=== PATIENT | female | born 2000 | race Caucasian/White ===

== ENCOUNTER 2019-05-06 23:37 | Emergency (ER) | payer OTHER ==
[2019-05-07 00:29] LABS: ABSOLUTE BASOPHILS # (AUTO) 0.1 10^3/uL (0.0-0.2); ABSOLUTE EOSINOPHILS # (AUTO) 0.2 10^3/uL (0.0-0.6); ABSOLUTE LYMPHOCYTES (AUTO) 3.6 10^3/uL (0.5-4.7); ABSOLUTE MONOCYTES (AUTO) 0.7 10^3/uL (0.1-1.4); ABSOLUTE NEUT (AUTO) 6.4 10^3/uL (1.7-8.2); BASOPHILS % (AUTO) 0.8 % (0-2); EOSINOPHILS % (AUTO) 1.5 % (0-6); HEMATOCRIT 43.9 % (36.0-47.0); HEMOGLOBIN 15.1 g/dL (12.0-15.5); LYMPHOCYTES % (AUTO) 32.5 % (13-45); MEAN CORPUSCULAR HEMOGLOBIN 30.4 pg (27.0-33.4); MEAN CORPUSCULAR HGB CONC 34.4 g/dL (32.0-36.0); MEAN CORPUSCULAR VOLUME 88 fl (80-97); MONOCYTES % (AUTO) 6.5 % (3-13); PLATELET COUNT 344 10^3/uL (150-450); RED BLOOD COUNT 4.97 10^6/uL (3.72-5.28); RED CELL DISTRIBUTION WIDTH 12.5 % (11.5-14.0); SEGMENTED NEUTROPHILS % (AUTO) 58.7 % (42-78); TOTAL CELLS COUNTED % (AUTO) 100 %
[2019-05-07 00:39] LABS: APPEARANCE,URINE SLIGHTLY-CLOUDY; BILIRUBIN,URINE NEGATIVE (NEGATIVE); COLOR,URINE YELLOW; GLUCOSE, URINE NEGATIVE (NEGATIVE); KETONES,URINE TRACE mg/dL (NEGATIVE); LEUKOCYTE ESTERASE,URINE NEGATIVE (NEGATIVE); NITRITE,URINE NEGATIVE (NEGATIVE); PROTEIN,URINE 30 mg/dL (NEGATIVE); URINE SPECIFIC GRAVITY 1.027; UROBILINOGEN,URINE NEGATIVE mg/dL (<2.0)
[2019-05-07 00:47] LABS: ALANINE AMINOTRANSFERASE 21 U/L (9-52); ALBUMIN 4.2 g/dL (3.5-5.0); ALKALINE PHOSPHATASE 55 U/L (38-126); ANION GAP 10 (5-19); ASPARTATE AMINO TRANSFERASE 22 U/L (14-36); BILIRUBIN,DIRECT 0.3 mg/dL (0.0-0.4); BILIRUBIN,TOTAL 0.4 mg/dL (0.2-1.3); BLOOD UREA NITROGEN 15 mg/dL (7-20); CALCIUM 9.5 mg/dL (8.4-10.2); CARBON DIOXIDE 26 mmol/L (22-30); CHLORIDE 104 mmol/L (98-107); GLUCOSE 86 mg/dL (75-110); LIPASE 47.7 U/L (23-300); SODIUM 139.7 mmol/L (137-145); TOTAL PROTEIN 6.5 g/dL (6.3-8.2)
[2019-05-07] MEDS ORDERED: ONDANSETRON 4 MG TAB.RAPDIS PO ONE (02:33)
[2019-05-07] MEDS ORDERED: OXYCODONE-ACETAMINOPHEN 5-325 MG TABLET PO ONE (02:33)
--- NOTE | 2019-05-07 02:35 | ER Document Report ---
ED GI/ - General Chief Complaint: Abdominal Pain Stated Complaint: ABDOMINAL PAIN Time Seen by Provider: 05/07/19 01:49 Notes: Patient is a 19-year-old female that comes to the emergency department for chief complaint of abdominal/pelvic pain. She reports nausea. Symptoms started tonight at 10 PM during and after intercourse. Patient is also currently on her menstrual cycle. She denies abdominal discharge, dysuria, fever/chills, flank pain, vomiting. Patient has Mirena IUD, denies any abdominal surgeries or any surgeries whatsoever, denies any medical history otherwise. TRAVEL OUTSIDE OF THE [place] IN LAST 30 DAYS: No - Related Data Allergies/Adverse Reactions: amoxicillin Allergy (Verified 05/07/19 00:23) Past Medical History - General Information source: Patient - Social History Smoking Status: Never Smoker Frequency of alcohol use: Social Drug Abuse: Marijuana Lives with: Family Family History: Reviewed & Not Pertinent Patient has suicidal ideation: No Patient has homicidal ideation: No - Medical History Medical History: Negative Renal/ Medical History: Denies: Hx Peritoneal Dialysis - Immunizations Immunizations up to date: Yes Hx Diphtheria, Pertussis, Tetanus Vaccination: Yes Review of Systems - Review of Systems Constitutional: No symptoms reported EENT: No symptoms reported Cardiovascular: No symptoms reported Respiratory: No symptoms reported Gastrointestinal: See HPI Genitourinary: See HPI Female Genitourinary: See HPI Musculoskeletal: No symptoms reported Skin: No symptoms reported Hematologic/Lymphatic: No symptoms reported Neurological/Psychological: No symptoms reported Physical Exam - Vital signs Vitals: Temp Pulse Resp BP Pulse Ox 97.3 F 91 20 111/69 98 05/06/19 23:54 05/06/19 23:54 05/06/19 23:54 05/06/19 23:54 05/06/19 23:54 - Notes Notes: GENERAL: Alert, interacts well. No acute distress. HEAD: Normocephalic, atraumatic. EYES: Pupils equal, round, and reactive to light. Extraocular movements intact. ENT: Oral mucosa moist, tongue midline. Oropharynx unremarkable. Airway patent. NECK: Full range of motion. Supple. Trachea midline. LUNGS: Clear to auscultation bilaterally, no wheezes, rales, or rhonchi. No respiratory distress. HEART: Regular rate and rhythm. No murmur ABDOMEN: Mild generalized lower abdominal tenderness, nonspecific, no guarding. GENITOURINARY: See course EXTREMITIES: Moves all 4 extremities spontaneously. No edema, normal radial and dorsalis pedis pulses bilaterally. No cyanosis. BACK: no cervical, thoracic, lumbar midline tenderness. No saddle anesthesia, normal distal neurovascular exam. Moves all extremities in full range of motion. NEUROLOGICAL: Alert and oriented x3. Normal speech. Cranial nerves II through XII grossly intact. PSYCH: Normal affect, normal mood. SKIN: Warm, dry, normal turgor. No rashes or lesions noted. Course - Re-evaluation Re-evalutation: CBC, chemistry, urine unremarkable. hCG is negative. Transvaginal ultrasound with no acute findings. I am unsure of the exact cause of patient's sharp pain especially during and after intercourse tonight. I d iscussed possible endometriosis. There is no free fluid suggesting ruptured cyst. Patient request a pelvic exam to be performed just to check the outside of her cervix because she feels like there is something "scratching the penis" of her partner. Speculum exam was performed with Kenisha HOLGUIN at bedside, this shows no concerning abnormality. No discharge, no cervical motion tenderness, external exam unremarkable as well. Patient states very great satisfaction with these findings. Patient will be discharged with Toradol as needed for pain, discussed follow-up and return precautions. Patient states understanding and agreement. - Vital Signs Vital signs: Temp Pulse Resp BP Pulse Ox 97.6 F 78 15 110/65 99 05/07/19 02:41 05/07/19 02:41 05/07/19 02:41 05/07/19 02:41 05/07/19 02:41 - Laboratory Result Diagrams: 05/07/19 00:11 05/07/19 00:11 Laboratory results interpreted by me: 05/07/19 05/07/19 00:11 00:11 WBC 11.0 H Urine Protein 30 H Urine Ketones TRACE H Discharge - Discharge Clinical Impression: Abdominal pain Qualifiers: Abdominal location: lower abdomen, unspecified Qualified Code(s): R10.30 - Lower abdominal pain, unspecified Condition: Stable Disposition: HOME, SELF-CARE Additional Instructions: Your ultrasound appears to show the IUD in the correct position. Your remaining work-up does not show any concerning findings. Take the Toradol as needed for pain, follow-up with FACIAL OPERATOR if symptoms continue for additional evaluation and management. Return if you worsen including severe pain, vomiting, fever, or any other concerning or worsening symptoms. Prescriptions: Ketorolac Tromethamine [Toradol 10 mg Tablet] 10 mg PO Q8HP PRN #24 tablet PRN Reason:
[2019-05-07 02:42] VITALS: BP 110/65
--- NOTE | 2019-05-07 03:34 | RADIOLOGY REPORT (SQ) ---
EXAM: US Pelvis transvaginal CLINICAL DATA: 19-year-old female TECHNICAL DATA: Ultrasound imaging of the pelvis was performed endovaginally on 05/07/2019 at 2:53 AM. COMPARISONS: None FINDINGS: The uterus is normal in size, shape and echogenicity and measures 7.8 x 3.5 x 5.1 cm. The endometrial complex measures 0.3 cm in thickness. There is no endometrial fluid. There is a shadowing linear area of increased echogenicity within the endometrial canal consistent with an intrauterine device. The right ovary measures 3.6 x 3.0 x 2.3 cm. The right ovary contains normal follicles. Doppler imaging demonstrates normal pulsed and color Doppler flow. The left ovary measures 2.6 x 2.0 x 1.5 cm. The left ovary contains normal follicles. Doppler imaging demonstrates normal pulsed and color Doppler flow. There is no free fluid in the pelvis. Note: Please note that this study was reported without the benefit of the technologist ultrasound worksheet. IMPRESSION: 1. Intrauterine device present in grossly satisfactory position. 2. Otherwise, unremarkable transvaginal pelvic ultrasound.
== END 2019-05-07 04:49 | disposition home or self-care (01) ==
LOC: ER 23:37
DX: R10.30 Lower abdominal pain, unspecified (principal); R10.2 Pelvic and perineal pain; R11.0 Nausea; Z97.5 Presence of (intrauterine) contraceptive device; Z88.0 Allergy status to penicillin
CPT/HCPCS: 99284; 36415; 83690; 85025; 81025; 80053; 81001; 76830; 93976; S0119

== ENCOUNTER 2019-07-15 14:23 | Emergency (ER) | payer OTHER ==
--- NOTE | 2019-07-15 15:03 | ER Document Report ---
ED Medical Screen (RME) - General Chief Complaint: Vag Bleeding, +preg <12wks Stated Complaint: VAGINAL BLEEDING Time Seen by Provider: 07/15/19 14:59 Mode of Arrival: Ambulatory Information source: Patient Notes: 19-year-old female presented to ED for complaint of pelvic pain and vaginal bleeding. She states it is like a light. Brownish colored. She states she did not notice any clots. She does have some pelvic pain mostly on the right side. She states she thinks she is about 6 weeks but has not had a blood test yet no ultrasound yet states her last menstrual period was 06/05/2019. She is 1 para 0. She states she was vaping but quit. 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 I have greeted and performed a rapid initial assessment of this patient. A comprehensive ED assessment and evaluation of the patient, analysis of test results and completion of medical decision making process will be conducted by an additional ED providers. TRAVEL OUTSIDE OF THE [place] IN LAST 30 DAYS: No - Related Data Allergies/Adverse Reactions: amoxicillin Allergy (Verified 07/15/19 14:23) Past Medical History - Social History Chew tobacco use (# tins/day): No Drug Abuse: None Renal/ Medical History: Denies: Hx Peritoneal Dialysis - Immunizations Immunizations up to date: Yes Hx Diphtheria, Pertussis, Tetanus Vaccination: Yes Physical Exam - Vital signs Vitals: Temp Pulse Resp BP Pulse Ox 98.0 F 98 18 142/79 H 98 07/15/19 14:57 07/15/19 14:57 07/15/19 14:57 07/15/19 14:57 07/15/19 14:57 Course - Vital Signs Vital signs: Temp Pulse Resp BP Pulse Ox 98.0 F 98 18 142/79 H 98 07/15/19 14:57 07/15/19 14:57 07/15/19 14:57 07/15/19 14:57 07/15/19 14:57
[2019-07-15 15:37] LABS: ABSOLUTE BASOPHILS # (AUTO) 0.1 10^3/uL (0.0-0.2); ABSOLUTE EOSINOPHILS # (AUTO) 0.1 10^3/uL (0.0-0.6); ABSOLUTE LYMPHOCYTES (AUTO) 1.8 10^3/uL (0.5-4.7); ABSOLUTE MONOCYTES (AUTO) 0.6 10^3/uL (0.1-1.4); ABSOLUTE NEUT (AUTO) 6.4 10^3/uL (1.7-8.2); BASOPHILS % (AUTO) 0.6 % (0-2); EOSINOPHILS % (AUTO) 1.4 % (0-6); HEMATOCRIT 39.7 % (36.0-47.0); HEMOGLOBIN 13.6 g/dL (12.0-15.5); LYMPHOCYTES % (AUTO) 20.1 % (13-45); MEAN CORPUSCULAR HEMOGLOBIN 30.7 pg (27.0-33.4); MEAN CORPUSCULAR HGB CONC 34.4 g/dL (32.0-36.0); MEAN CORPUSCULAR VOLUME 89 fl (80-97); MONOCYTES % (AUTO) 6.4 % (3-13); PLATELET COUNT 316 10^3/uL (150-450); RED BLOOD COUNT 4.45 10^6/uL (3.72-5.28); SEGMENTED NEUTROPHILS % (AUTO) 71.5 % (42-78); TOTAL CELLS COUNTED % (AUTO) 100 %; WHITE BLOOD COUNT 8.9 10^3/uL (4.0-10.5)
[2019-07-15 15:51] LABS: APPEARANCE,URINE CLOUDY; BILIRUBIN,URINE NEGATIVE (NEGATIVE); COLOR,URINE YELLOW; GLUCOSE, URINE NEGATIVE (NEGATIVE); KETONES,URINE NEGATIVE (NEGATIVE); LEUKOCYTE ESTERASE,URINE TRACE (NEGATIVE); NITRITE,URINE NEGATIVE (NEGATIVE); PROTEIN,URINE NEGATIVE (NEGATIVE); URINE SPECIFIC GRAVITY 1.014; UROBILINOGEN,URINE NEGATIVE mg/dL (<2.0)
--- NOTE | 2019-07-15 16:37 | RADIOLOGY REPORT (SQ) ---
EXAM DESCRIPTION: U/S OB TRANSVAGINAL W/O DOP COMPLETED DATE/TIME: 07/15/2019 4:25 pm REASON FOR STUDY: pelvic pain vaginal bleeding preg COMPARISON: None. TECHNIQUE: Transvaginal static and realtime grayscale images acquired of the pelvis. Additional cassy cted spectral and color Doppler images recorded. All images stored on PACs. CLINICAL AGE: 5 week 5 day. BHCG: Not available. LIMITATIONS: None. FINDINGS: UTERUS: No visualized intrauterine . RIGHT ADNEXA: Normal ovary with normal vascular flow. No adnexal free fluid. 5.4 cm simple cyst. LEFT ADNEXA: Normal ovary with normal vascular flow. No adnexal free fluid. No adnexal masses. FREE FLUID: Small amount of free fluid. OTHER: No other significant finding. IMPRESSION: 5.4 CM SIMPLE CYST IN THE RIGHT OVARY. SMALL AMOUNT OF FREE FLUID. NO VISUALIZED INTRA- OR EXTRAUTERINE . bHCG LEVEL NOT AVAILABLE FOR CORRELATION WITH US FINDINGS. ECTOPIC CANNOT BE EXCLUDED. FOLLOW-UP ULTRASOUND AND SERIAL BHCG LEVELS STRONGLY RECOMMENDED TO ACCURATELY ASSESS STATU S. TECHNICAL DOCUMENTATION: JOB ID: [id number] [employer]- All Rights Reserved Reading location - IP/workstation name: [email or web address]
[2019-07-15 16:44] LABS: ALBUMIN 3.4 g/dL (3.5-5.0); ALKALINE PHOSPHATASE 49 U/L (38-126); ANION GAP 8 (5-19); ASPARTATE AMINO TRANSFERASE 19 U/L (14-36); BILIRUBIN,DIRECT 0.2 mg/dL (0.0-0.4); BILIRUBIN,TOTAL 0.2 mg/dL (0.2-1.3); BLOOD UREA NITROGEN 11 mg/dL (7-20); CALCIUM 8.8 mg/dL (8.4-10.2); CARBON DIOXIDE 23 mmol/L (22-30); CHLORIDE 106 mmol/L (98-107); GLUCOSE 79 mg/dL (75-110); POTASSIUM 4.1 mmol/L (3.6-5.0); TOTAL PROTEIN 5.5 g/dL (6.3-8.2)
--- NOTE | 2019-07-15 16:58 | ER Document Report ---
ED GI/ - General Chief Complaint: Vag Bleeding, +preg <12wks Stated Complaint: VAGINAL BLEEDING Time Seen by Provider: 07/15/19 14:59 Mode of Arrival: Ambulatory TRAVEL OUTSIDE OF THE [place] IN LAST 30 DAYS: No - HPI Patient complains to provider of: , Vaginal bleeding. No: Abdominal pain, Diarrhea, Dysuria, Feeding tube problem, Flank pain, [place] catheter problem, Hematuria, Missed/Late menses, Pelvic pain, Urinary retention, Vaginal discharge, Vaginal pain, Vomiting, Other Onset: Yesterday Timing/Duration: Sudden. denies: Gradual, Constant, Intermittent, Persistent, Waxing and waning, Better, Worse, Gone Quality of pain: denies: No pain, Achy, Burning, Cramping, Dull, Fullness, Pressure, Sharp, Stabbing, Throbbing, Other Severity at maximum: Mild Severity in ED: No: Mild, Moderate, Severe, Almost gone, None Pain Level: 0 Location: No: Chest pain, Epigastric, LUQ, LLQ, RUQ, RLQ, Left flank, Right flank, Low back, Suprapubic, Pelvis, Vaginal, Vulvar, Rectal, Other Vaginal bleeding (Compared to normal period): Spotting. denies: None, Cane Cutter, Similar, Heavier, Severe, Bright red, Dark brown, Passing clots, Passing tissue Menstrual period history: LMP: 6 wks ago per patient : 1 Para: 0 Abortions: 0 - Related Data Allergies/Adverse Reactions: amoxicillin Allergy (Verified 07/15/19 14:23) Past Medical History - General Information source: Patient - Social History Smoking Status: Former Smoker Chew tobacco use (# tins/day): No Drug Abuse: None Family History: Reviewed & Not Pertinent Patient has suicidal ideation: No Patient has homicidal ideation: No Renal/ Medical History: Denies: Hx Peritoneal Dialysis - Immunizations Immunizations up to date: Yes Hx Diphtheria, Pertussis, Tetanus Vaccination: Yes Review of Systems - Review of Systems Constitutional: denies: No symptoms reported, See HPI, Chills, Diaphoresis, Fever, Malaise, Weakness, Other, Weight gain, Weight loss, Recent illness EENT: denies: No symptoms reported, See HPI, Eye pain, Eye discharge, Blurred vision, Tearing, Double vision, Ear pain, Ear discharge, Nose pain, Nose congest ion, Nose discharge, Sinus pressure, Sinus discharge, Throat pain, Difficulty swallowing, Throat swelling, Mouth pain, Mouth swelling, Dental problem, Vertigo, Other Gastrointestinal: denies: No symptoms reported, See HPI, Abdomen distended, Abdominal pain, Diarrhea, Nausea, Vomiting, Constipation, Blood streaked bowels, Poor appetite, Poor fluid intake, Blood in vomit, Black stools, Rectal bleeding, Last bowel movement, Fecal incontinence, Other Female Genitourinary: Vaginal bleeding. denies: No symptoms reported, See HPI, Last menstrual period, , Post menopausal, Heavy/abnormal periods, Irregular period, Vaginal discharge, Vaginal odor, Painful intercourse, Other Musculoskeletal: No symptoms reported -: Yes All other systems reviewed and negative Physical Exam - Vital signs Vitals: Temp Pulse Resp BP Pulse Ox 98.0 F 98 18 142/79 H 98 07/15/19 14:57 07/15/19 14:57 07/15/19 14:57 07/15/19 14:57 07/15/19 14:57 Notes: PHYSICAL EXAMINATION: GENERAL: Well-appearing, well-nourished and in no acute distress. HEAD: Atraumatic, normocephalic. EYES: Pupils equal round and reactive to light, extraocular movements intact, sclera anicteric, conjunctiva are normal. ENT: nares patent, oropharynx clear without exudates. Moist mucous membranes. NECK: Normal range of motion, supple without lymphadenopathy LUNGS: Breath sounds clear to auscultation bilaterally and equal. No wheezes rales or rhonchi. HEART: Regular rate and rhythm without murmurs ABDOMEN: Soft, nontender, normoactive bowel sounds. No guarding, no rebound. No masses appreciated. : Exam with speculum shows some old blood in the eyes no active bleeding. No wet prep was taken GC and chlamydia was not as patient is for STDs. Bimanual shows no cervical motion tenderness no adnexal tenderness osseous closed. EXTREMITIES: Normal range of motion, no pitting or edema. No cyanosis. NEUROLOGICAL: No focal neurological deficits. Moves all extremities spontaneously and on command. PSYCH: Normal mood, normal affect. SKIN: Warm, Dry, normal turgor, no rashes or lesions noted. Course - Vital Signs Vital signs: Temp Pulse Resp BP Pulse Ox 98.0 F 98 18 142/79 H 98 07/15/19 14:57 07/15/19 14:57 07/15/19 14:57 07/15/19 14:57 07/15/19 14:57 - Laboratory Result Diagrams: 07/15/19 15:05 07/15/19 15:05 Laboratory results interpreted by me: 07/15/19 07/15/19 15:05 15:05 Total Protein 5.5 L Albumin 3.4 L Beta HCG, Quant 49.30 H Urine Blood LARGE H Ur Leukocyte Esterase TRACE H - Diagnostic Test Radiology reviewed: Image reviewed, Reports reviewed - Transfer of Care Notes: 07/15/19 18:22 Discussed results of ultrasound and labs with patient with a quantitative hCG beta AC of 49 I told her that she needs to return in 2 days to get a repeat here or with her OB doctor to see if the trend is up indicating early or down indicating an inevitable . Patient has no active bleeding or abdominal pain at this time. Landor if the pain comes back or bleeding at all to come back as it is most likely too early to tell but ectopic cannot be completely excluded and this was discussed with her and her . Note patient was O+ therefore will not need RhoGam 07/15/19 19:15 Discharge - Discharge Clinical Impression: Threatened Condition: Stable Disposition: HOME, SELF-CARE Instructions: ([facility]), Repeat Blood Test ([facility]) Additional Instructions: Return if increased abdominal pain or vaginal bleeding. Follow-up in 2 days here or with your OB doctor for repeat hCG level as discussed return sooner if worse bedrest fluids no sexual intercourse please see her OB doctor.
[2019-07-15 17:31] LABS: BACTERIA (WET MOUNT) 3+ BACTERIA SEEN; RBCS (WET MOUNT) 1+ RBCS SEEN; T.VAGINALIS (WET MOUNT) NO TRICHOMONAS SEEN; WBCS (WET MOUNT) 2+ WBCS SEEN; YEAST (WET MOUNT) YEAST SEEN
[2019-07-15 19:28] VITALS: BP 113/67
== END 2019-07-15 19:28 | disposition home or self-care (01) ==
LOC: ER 14:23
DX: O20.0 Threatened abortion (principal); Z88.0 Allergy status to penicillin
CPT/HCPCS: 36415; 76817; 80053; 81001; 84702; 85025; 86900; 86901; 87210; 99284

== ENCOUNTER 2019-07-17 14:57 | Emergency (ER) | payer OTHER ==
--- NOTE | 2019-07-17 17:01 | ER Document Report ---
HPI - HPI Patient complains to provider of: repeat HCG level Time Seen by Provider: 07/17/19 16:25 Onset: Other Onset/Duration: Sudden Quality of pain: Achy, Cramping Pain Level: Denies Context: This 19-year-old female presents emergency department with request for repeat hCG level. Patient was evaluated in the emergency department 2 days ago and told to follow-up for repeat hCG level. She reports she still having cramps. Reports vaginal bleeding has tapered off although she still has some brown blood. Denies fever vomiting diarrhea denies pain with void. Patient is G1, P0 Associated Symptoms: None Exacerbated by: Denies Relieved by: Denies Similar symptoms previously: Yes Recently seen / treated by doctor: Yes - CONSTITUTIONAL Constitutional: DENIES: Fever, Chills - REPRODUCTIVE LMP: 05/31/2019 Reproductive: REPORTS: : Past Medical History - General Information source: Patient Last Menstrual Period: 06/05/19 - Social History Smoking Status: Unknown if Ever Smoked Cigarette use (# per day): No Frequency of alcohol use: None Drug Abuse: None Lives with: Family Family History: Reviewed & Not Pertinent Patient has suicidal ideation: No Patient has homicidal ideation: No - Medical History Medical History: Negative Renal/ Medical History: Denies: Hx Peritoneal Dialysis Surgical Hx: Negative - Immunizations Immunizations up to date: Yes Hx Diphtheria, Pertussis, Tetanus Vaccination: Yes Vertical Provider Document - CONSTITUTIONAL Agree With Documented VS: Yes Exam Limitations: No Limitations General Appearance: No Apparent Distress - INFECTION CONTROL TRAVEL OUTSIDE OF THE [place] IN LAST 30 DAYS: No - HEENT HEENT: Atraumatic, Normocephalic - NECK Neck: Supple - RESPIRATORY Respiratory: No Respiratory Distress - CARDIOVASCULAR Cardiovascular: Regular Rate - MUSCULOSKELETAL/EXTREMETIES Musculoskeletal/Extremeties: SUJEY CERVANTES - NEURO Level of Consciousness: Awake, Alert, Appropriate Motor/Sensory: No Motor Deficit - DERM Integumentary: Warm, Dry Course - Re-evaluation Re-evalutation: 07/17/19 17:01 19-year-old female presents for repeat hCG. Reports she is experience abdominal cramping that comes and goes. She also reports vaginal bleeding but more brown blood now. She was scheduled for a repeat hCG but did not have the form so she came to the emergency department. Patient was instructed on hCG level. today was 34 with previous level of 49. Patient denies abdominal pain. Denies vaginal bleeding at this time. She was instructed to return the emergency department should she have excruciating pain, vaginal bleeding. She verbalized understanding to all instructions. She does have a primary care provider who she will follow-up with for [facility] [employer] [employer] referral. Dictation of this chart was performed using voice recognition software; therefore, there may be some unintended grammatical errors. - Vital Signs Vital signs: Temp Pulse Resp BP Pulse Ox 97.2 F 81 18 123/65 99 07/17/19 15:00 07/17/19 15:00 07/17/19 15:00 07/17/19 15:00 07/17/19 15:00 Discharge - Discharge Clinical Impression: Vaginal bleeding, Miscarriage Condition: Stable Disposition: HOME, SELF-CARE Instructions: [facility] [place] Instructions: *You have been evaluated for vaginal bleeding, miscarriage *Your hCG level was 34 today, 2 days ago your hCG level was 49- *Follow up with your primary care provider within 5 days *Return to ED for worsening condition, changes, needs *Return to ED if not better in 24 hours Referrals: SONU CONTRERAS PA-C [Primary Care Provider] - Follow up in 3-5 days
[2019-07-17 18:16] VITALS: BP 129/80
== END 2019-07-17 18:18 | disposition home or self-care (01) ==
LOC: ER 14:57
DX: O03.9 Complete or unspecified spontaneous abortion without complication (principal); O46.91 Antepartum hemorrhage, unspecified, first trimester; O26.891 Other specified pregnancy related conditions, first trimester; R10.9 Unspecified abdominal pain; Z3A.00 Weeks of gestation of pregnancy not specified
CPT/HCPCS: 36415; 84702; 99284

== ENCOUNTER → 2019-07-17 | Outpatient (CLI) | payer OTHER | LOC: LAB 14:37 | PROVIDERS: ATTEND Emergency Medicine | DX: O20.0 Threatened abortion (principal); Z3A.00 Weeks of gestation of pregnancy not specified ==

== ENCOUNTER 2019-07-29 10:52 | Emergency (ER) | payer OTHER ==
--- NOTE | 2019-07-29 11:21 | ER Document Report ---
ED Medical Screen (RME) - General Chief Complaint: Abdominal Pain Stated Complaint: NAUSEA Time Seen by Provider: 07/29/19 11:15 Primary Care Provider: SONU CONTRERAS PA-C [Primary Care Provider] - Follow up as needed Mode of Arrival: Ambulatory Information source: Patient Notes: Patient presents emergency department with left lower quad\groin pain since 930 this morning. Reports she was put on her make-up when she started feeling comfortable. Reports she has history of ovarian cyst but is never felt like this before. No complaints of vomiting diarrhea denies pain with void. Patient had recent miscarriage at the beginning of this month. I have greeted and performed a rapid initial assessment of this patient. A comprehensive ED assessment and evaluation of the patient, analysis of test results and completion of the medical decision making process will be conducted by additional ED providers. Dictation of this chart was performed using voice recognition software; therefore, there may be some unintended grammatical errors. TRAVEL OUTSIDE OF THE [place] IN LAST 30 DAYS: No - Related Data Allergies/Adverse Reactions: amoxicillin Allergy (Verified 07/29/19 10:54) Past Medical History - Social History Frequency of alcohol use: Occasional Drug Abuse: None Renal/ Medical History: Denies: Hx Peritoneal Dialysis - Immunizations Immunizations up to date: Yes Hx Diphtheria, Pertussis, Tetanus Vaccination: Yes Physical Exam - Vital signs Vitals: Temp Pulse Resp BP Pulse Ox 98 F 64 16 118/77 100 07/29/19 10:54 07/29/19 10:54 07/29/19 10:54 07/29/19 10:54 07/29/19 10:54 Course - Vital Signs Vital signs: Temp Pulse Resp BP Pulse Ox 98 F 64 16 118/77 100 07/29/19 10:54 07/29/19 10:54 07/29/19 10:54 07/29/19 10:54 07/29/19 10:54 Doctor's Discharge - Discharge Referrals: SONU CONTRERAS PA-C [Primary Care Provider] - Follow up as needed
[2019-07-29 12:08] LABS: ABSOLUTE EOSINOPHILS # (AUTO) 0.1 10^3/uL (0.0-0.6); ABSOLUTE MONOCYTES (AUTO) 0.3 10^3/uL (0.1-1.4); ABSOLUTE NEUT (AUTO) 5.7 10^3/uL (1.7-8.2); BASOPHILS % (AUTO) 0.1 % (0-2); EOSINOPHILS % (AUTO) 0.8 % (0-6); HEMATOCRIT 41.4 % (36.0-47.0); LYMPHOCYTES % (AUTO) 14.4 % (13-45); MEAN CORPUSCULAR HEMOGLOBIN 30.1 pg (27.0-33.4); MEAN CORPUSCULAR HGB CONC 33.9 g/dL (32.0-36.0); MEAN CORPUSCULAR VOLUME 89 fl (80-97); MONOCYTES % (AUTO) 3.8 % (3-13); PLATELET COUNT 295 10^3/uL (150-450); RED BLOOD COUNT 4.66 10^6/uL (3.72-5.28); RED CELL DISTRIBUTION WIDTH 12.3 % (11.5-14.0); SEGMENTED NEUTROPHILS % (AUTO) 80.9 % (42-78); TOTAL CELLS COUNTED % (AUTO) 100 %
[2019-07-29 12:12] LABS: APPEARANCE,URINE CLEAR; BILIRUBIN,URINE NEGATIVE (NEGATIVE); COLOR,URINE YELLOW; GLUCOSE, URINE NEGATIVE (NEGATIVE); KETONES,URINE NEGATIVE (NEGATIVE); LEUKOCYTE ESTERASE,URINE NEGATIVE (NEGATIVE); NITRITE,URINE NEGATIVE (NEGATIVE); PROTEIN,URINE NEGATIVE (NEGATIVE); URINE SPECIFIC GRAVITY 1.013; UROBILINOGEN,URINE NEGATIVE mg/dL (<2.0)
[2019-07-29 12:28] LABS: ALBUMIN 3.5 g/dL (3.5-5.0); ALKALINE PHOSPHATASE 39 U/L (38-126); ANION GAP 6 (5-19); ASPARTATE AMINO TRANSFERASE 17 U/L (14-36); BILIRUBIN,TOTAL 0.2 mg/dL (0.2-1.3); BLOOD UREA NITROGEN 5 mg/dL (7-20); CARBON DIOXIDE 27 mmol/L (22-30); CHLORIDE 105 mmol/L (98-107); GLUCOSE 98 mg/dL (75-110); TOTAL PROTEIN 5.5 g/dL (6.3-8.2)
[2019-07-29] MEDS ORDERED: ONDANSETRON 4 MG TAB.RAPDIS PO ONE (12:58)
--- NOTE | 2019-07-29 14:10 | RADIOLOGY REPORT (SQ) ---
EXAM DESCRIPTION: U/S OB TRANSVAG W/DOPPLER COMPLETED DATE/TIME: 07/29/2019 1:57 pm REASON FOR STUDY: left groin pain, hx ovarian cysts COMPARISON: 07/15/2019 and 05/07/2019 TECHNIQUE: Transvaginal static and realtime grayscale images acquired of the pelvis. Additional cassy cted spectral and color Doppler images recorded. All images stored on PACs. CLINICAL AGE: 8 weeks, 1 day [facility].63 LIMITATIONS: None. FINDINGS: UTERUS: No visualized intrauterine . RIGHT ADNEXA: Re- demonstration of a simple cyst greater than 5 cm, similar to that seen on 07/15/2019 imaging. No adnexal free fluid. No adnexal masses. LEFT ADNEXA: Normal ovary with normal vascular flow. No adnexal free fluid. No adnexal masses. FREE FLUID: A small amount of simple appearing free fluid is seen within the pelvic cul-de-sac. OTHER: No other significant finding. IMPRESSION: NO VISUALIZED INTRA- OR EXTRAUTERINE . bHCG LEVEL TOO LOW TO EXPECT VISUALIZATION OF . RECOMMEND CLOSE CLINICAL FOLLOW-UP WITH SERIAL BETA HCGS AND REPEAT SONOGRAPHIC EVALUATION CLINICA LLY INDICATED. 5.9 CM SIMPLE CYST WITHIN THE RIGHT OVARY IS ALMOST CERTAINLY BENIGN. CONSIDER REPEAT EVALUATION IN 12 MONTHS. TECHNICAL DOCUMENTATION: JOB ID: [id number]- All Rights Reserved Reading location - IP/workstation name: [email or web address]
--- NOTE | 2019-07-29 15:28 | ER Document Report ---
Entered by SOL PHILIP SCRIBE 07/29/19 1412 Acting as scribe for:MK HARKINS MD ED GI/ - General Chief Complaint: Abdominal Pain Stated Complaint: NAUSEA Time Seen by Provider: 07/29/19 11:15 Primary Care Provider: SONU CONTRERAS PA-C [Primary Care Provider] - Follow up as needed Mode of Arrival: Ambulatory Notes: Patient is a 19-year-old female who presents to the emergency department today with complaints of left lower quadrant abdominal pain. Patient states her symptoms began with "aggravating" nausea for approximately 15 minutes followed by "shooting 9 out of 10 left lower quadrant abdominal pain". Patient states "the pain went all the way down my left leg to my foot but got less painful as it went down". Patient then goes on to further describe this as "getting more numb as it goes down the leg with the bottom of my foot being the most numb." Patient was asked if this pain and numbness followed any specific pattern down her leg which she answers as "like it is inside, I do not know". Of note, the patient had a recent miscarriage approximately 2-1/2 weeks ago at 6 weeks gestation. Patient states that since the miscarriage she has had light spotting which has now become slightly heavier, stating it is like a normal period now. Patient denies any cramping or history of kidney stones. Patient states that she has had a ruptured ovarian cyst in the past. TRAVEL OUTSIDE OF THE [place] IN LAST 30 DAYS: No - Related Data Allergies/Adverse Reactions: amoxicillin Allergy (Verified 07/29/19 10:54) Past Medical History - General Information source: Patient - Social History Smoking Status: Never Smoker Cigarette use (# per day): No Frequency of alcohol use: Occasional Drug Abuse: None Occupation: [employer] Lives with: Family Family History: Reviewed & Not Pertinent Patient has suicidal ideation: No Patient has homicidal ideation: No Renal/ Medical History: Reports: Hx Ovarian Cysts Surgical Hx: Negative - Immunizations Immunizations up to date: Yes Hx Diphtheria, Pertussis, Tetanus Vaccination: Yes Review of Systems - Review of Systems Constitutional: No symptoms reported EENT: No symptoms reported Cardiovascular: No symptoms reported Respiratory: No symptoms reported Gastrointestinal: See HPI, Nausea Genitourinary: No symptoms reported Female Genitourinary: See HPI, Vaginal bleeding, Other - miscarriage @ 6 weeks, approximately 2 weeks ago Musculoskeletal: No symptoms reported Skin: No symptoms reported Hematologic/Lymphatic: No symptoms reported Neurological/Psychological: No symptoms reported -: Yes All other systems reviewed and negative Physical Exam - Vital signs Vitals: Temp Pulse Resp BP Pulse Ox 98 F 64 16 118/77 100 07/29/19 10:54 07/29/19 10:54 07/29/19 10:54 07/29/19 10:54 07/29/19 10:54 - Notes Notes: Physical Exam: General: Alert, appears well. HEENT: Normocephalic. Atraumatic. PERRL. Extraocular movements intact. [place] pharynx clear. Neck: Supple. Non-tender. Respiratory: No respiratory distress. Clear and equal breath sounds bilaterally. Cardiovascular: Regular rate and rhythm. Abdominal: Inconsistent exam. Initially palpation of the left lower quadrant caused pain, the right lower quadrant was then palpated without any pain, left lower quadrant was palpated again and there was now no pain over that previously tender area.. No distension. Normal Bowel Sounds. Back: No gross abnormalities. Extremities: Moves all four extremities. Upper extremities: Normal inspection. Normal ROM. Lower extremities: Normal inspection. No edema. Normal ROM. Neurological: Normal cognition. AAOx4. Normal speech. Psychological: Normal affect. Normal Mood. Skin: Warm. Dry. Normal color. Course - Re-evaluation Re-evalutation: 07/29/19 15:22 I did discuss the case with Dr. Pittman. She recommended doing a urine hCG in case the quantitative hCG was a false positive due to heterophile antibody. She also recommended repeating the hCG on Thursday and follow-up in the office on Thursday. If the pain gets worse, and the serum hCG is climbing on Thursday, then call the OB montessori lead teacher to discuss starting methotrexate. The patient is to stop vitamins if she was taking them, no sexual intercourse, pelvic rest. - Vital Signs Vital signs: Temp Pulse Resp BP Pulse Ox 98 F 64 16 118/77 100 07/29/19 10:54 07/29/19 10:54 07/29/19 10:54 07/29/19 10:54 07/29/19 10:54 - Laboratory Result Diagrams: 07/29/19 11:35 07/29/19 11:35 Laboratory results interpreted by me: 07/29/19 07/29/19 07/29/19 11:35 11:35 11:35 Seg Neutrophils % 80.9 H BUN 5 L Total Protein 5.5 L Serum HCG, Qual POSITIVE H Beta HCG, Quant Urine Blood 07/29/19 07/29/19 11:35 11:35 Seg Neutrophils % BUN Total Protein Serum HCG, Qual Beta HCG, Quant 37.64 H Urine Blood LARGE H - Diagnostic Test Radiology reviewed: Reports reviewed - Ultrasound shows a 5 cm simple right ovarian cyst, no other abnormalities. Discharge - Discharge Clinical Impression: Pelvic pain with positive beta-human chorionic gonadotropin (BhCG) in female Condition: Stable Disposition: HOME, SELF-CARE Additional Instructions: Take Tylenol and ibuprofen for pain if needed. Do not engage in sexual intercourse. Rest. Drink plenty of fluids. Return to the emergency room on Thursday about 10 AM for a repeat serum quantitative hCG level. Return sooner if pain gets severe. Have the triage nurse contact Dr. Harkins when you arrive Thursday. The plan at this time is to repeat your hormone level on Thursday and depending on the results, either contact the SEARCH MANAGER physician montessori lead teacher, or follow-up in the office on Thursday. RETURN TO THE EMERGENCY ROOM IF ANY NEW OR WORSENING SYMPTOMS. Forms: Return to Work Referrals: SONU CONTRERAS PA-C [Primary Care Provider] - Follow up as needed Scribe Attestation: 07/29/19 15:24 I personally performed the services described in the documentation, reviewed and edited the documentation which was dictated to the scribe in my presence, and it accurately records my words and actions. I personally performed the services described in the documentation, reviewed and edited the documentation which was dictated to the scribe in my presence, and it accurately records my words and actions.
[2019-07-29 15:45] VITALS: BP 132/85
[2019-07-29 16:55] LABS: CHLAM PCR NOT DETECTED (NOT DETECT)
== END 2019-07-29 15:45 | disposition home or self-care (01) ==
LOC: ER 10:52
DX: Z32.01 Encounter for pregnancy test, result positive (principal); N83.202 Unspecified ovarian cyst, left side; R10.2 Pelvic and perineal pain; R10.32 Left lower quadrant pain; M79.605 Pain in left leg; M79.672 Pain in left foot
CPT/HCPCS: 99284; 36415; 84702; 84703; 85025; 81025; 80053; 81001; 87491; 87591; 76817; 93976; S0119

== ENCOUNTER 2019-07-31 09:51 | Emergency (ER) | payer OTHER ==
[2019-07-31 10:40] LABS: APPEARANCE,URINE CLEAR; BILIRUBIN,URINE NEGATIVE (NEGATIVE); COLOR,URINE YELLOW; GLUCOSE, URINE NEGATIVE (NEGATIVE); KETONES,URINE NEGATIVE (NEGATIVE); LEUKOCYTE ESTERASE,URINE NEGATIVE (NEGATIVE); NITRITE,URINE NEGATIVE (NEGATIVE); PROTEIN,URINE NEGATIVE (NEGATIVE); URINE SPECIFIC GRAVITY 1.012; UROBILINOGEN,URINE NEGATIVE mg/dL (<2.0)
--- NOTE | 2019-07-31 11:01 | ER Document Report ---
Entered by SOL PHILIP SCRIBE 07/31/19 1016 Acting as scribe for:MK HARKINS MD ED GI/ - General Chief Complaint: OB Problem (<20wks) Stated Complaint: LAB REDRAW/HCG Time Seen by Provider: 07/31/19 10:03 Primary Care Provider: SONU CONTRERAS PA-C [Primary Care Provider] - Follow up as needed Mode of Arrival: Ambulatory Information source: Patient, [facility] Records Notes: Patient is a 19 year old female that presents to the emergency department today for repeat hCG levels. Patient was seen here two days ago for abdominal pain, with a recent miscarriage [address] Pittman was consulted two days ago, she recommended doing a urine hCG in case the quantitative hCG was a false positive due to heterophile antibody. She also recommended the patient come in today for repeat hCG. Patient states she has had mild pain once or twice the last two days with intermittent nausea. TRAVEL OUTSIDE OF THE [place] IN LAST 30 DAYS: No - Related Data Allergies/Adverse Reactions: amoxicillin Allergy (Verified 07/29/19 10:54) Past Medical History - General Information source: Patient, [facility] Records - Social History Smoking Status: Never Smoker Cigarette use (# per day): No Chew tobacco use (# tins/day): No Smoking Education Provided: No Frequency of alcohol use: None Drug Abuse: None Occupation: [employer] Lives with: Family Family History: Reviewed & Not Pertinent Renal/ Medical History: Reports: Hx Ovarian Cysts - Immunizations Immunizations up to date: Yes Hx Diphtheria, Pertussis, Tetanus Vaccination: Yes Review of Systems - Review of Systems Constitutional: See HPI, Other - here for hCG levels EENT: No symptoms reported Cardiovascular: No symptoms reported Respiratory: No symptoms reported Gastrointestinal: See HPI, Nausea Genitourinary: No symptoms reported Female Genitourinary: No symptoms reported Musculoskeletal: No symptoms reported Skin: No symptoms reported Hematologic/Lymphatic: No symptoms reported Neurological/Psychological: No symptoms reported -: Yes All other systems reviewed and negative Physical Exam - Vital signs Vitals: Temp Pulse Resp BP Pulse Ox 98.1 F 83 16 106/59 L 98 07/31/19 09:53 07/31/19 09:53 07/31/19 09:53 07/31/19 09:53 07/31/19 09:53 - Notes Notes: Physical Exam: General: Alert, appears well. HEENT: Normocephalic. Atraumatic. PERRL. Extraocular movements intact. Oropharynx clear. Neck: Supple. Non-tender. Respiratory: No respiratory distress. Clear and equal breath sounds bilaterally. Cardiovascular: Regular rate and rhythm. Abdominal: Minimal suprapubic tenderness with palpation. No distension. Normal Bowel Sounds. Back: No gross abnormalities. Extremities: Moves all four extremities. Upper extremities: Normal inspection. Normal ROM. Lower extremities: Normal inspection. No edema. Normal ROM. Neurological: Normal cognition. AAOx4. Normal speech. Psychological: Normal affect. Normal Mood. Skin: Warm. Dry. Normal color. Course - Re-evaluation Re-evalutation: 07/31/19 11:53 Patient's beta-hCG level has increased from 37.642 days ago to 45.78 today. The urine hCG 2 days ago was negative. Reviewing the visits, lab results, and ul trasounds for the 4 visits in July, suggest that she had a miscarriage earlier and has a heterophile antibody. The case was discussed at length with Dr. Pittman, who was the attending hot iron worker 2 days ago when I first saw this patient. She will make arrangements for [facility] to call the patient tomorrow for follow-up appointment, and will provide all of the information for her partner who will be seeing the patient in the office tomorrow. - Vital Signs Vital signs: Temp Pulse Resp BP Pulse Ox 98.1 F 83 16 106/59 L 98 07/31/19 09:53 07/31/19 09:53 07/31/19 09:53 07/31/19 09:53 07/31/19 09:53 - Laboratory Laboratory results interpreted by me: 07/31/19 07/31/19 10:10 10:10 Beta HCG, Quant 45.78 H Urine Blood SMALL H Discharge - Discharge Clinical Impression: Pelvic pain with positive beta-human chorionic gonadotropin (BhCG) in female Condition: Stable Disposition: HOME, SELF-CARE Additional Instructions: [facility] will call you tomorrow morning with an appointment time. Take Tylenol and ibuprofen for pain if needed. Return to the emergency room if you have a significant increase in the amount of pain or have heavy bleeding. RETURN TO THE EMERGENCY ROOM IF ANY NEW OR WORSENING SYMPTOMS. Referrals: [facility] [Provider Group] - Follow up tomorrow Scribe Attestation: 07/31/19 11:54 I personally performed the services described in the documentation, reviewed and edited the documentation which was dictated to the scribe in my presence, and it accurately records my words and actions. I personally performed the services described in the documentation, reviewed and edited the documentation which was dictated to the scribe in my presence, and it accurately records my words and actions.
[2019-07-31 12:00] VITALS: BP 118/59
== END 2019-07-31 12:01 | disposition home or self-care (01) ==
LOC: ER 09:51
DX: R10.2 Pelvic and perineal pain (principal); R11.0 Nausea; Z87.59 Personal history of other complications of pregnancy, childbirth and the puerperium; Z87.42 Personal history of other diseases of the female genital tract; Z88.0 Allergy status to penicillin
CPT/HCPCS: 36415; 81001; 84702; 99282

== ENCOUNTER 2020-01-19 20:06 | Emergency (ER) | payer OTHER ==
--- NOTE | 2020-01-19 21:43 | ER Document Report ---
ED Medical Screen (RME) - General Chief Complaint: Abdominal Pain Stated Complaint: 17 WKS PREG ABDOMINAL PAIN Time Seen by Provider: 01/19/20 21:39 Primary Care Provider: SONU CONTRERAS PA-C [Primary Care Provider] - Follow up as needed Mode of Arrival: Ambulatory Information source: Patient Notes: This is a 19-year-old female presented to the emergency room today stating that she was 17 weeks and cramping in the lower abdomen no spotting no bleeding no discharge. TRAVEL OUTSIDE OF THE [place] IN LAST 30 DAYS: No - HPI Onset: Just prior to arrival Quality of pain: No pain Severity: None Associated Symptoms: None - Related Data Allergies/Adverse Reactions: amoxicillin Allergy (Verified 01/19/20 21:17) Home Medications: ZOLOFT. PRE-KELLY Past Medical History Renal/ Medical History: Reports: Hx Ovarian Cysts. Denies: Hx Peritoneal Dialysis - Immunizations Immunizations up to date: Yes Hx Diphtheria, Pertussis, Tetanus Vaccination: Yes Physical Exam - Vital signs Vitals: Temp Pulse Resp BP Pulse Ox 97.8 F 93 20 124/66 98 01/19/20 20:09 01/19/20 20:09 01/19/20 20:09 01/19/20 20:09 01/19/20 20:09 - Abdominal Inspection: Normal Distension: No distension Bowel sounds: Normal Tenderness: Tender Organomegaly: No organomegaly Course - Vital Signs Vital signs: Temp Pulse Resp BP Pulse Ox 97.8 F 93 20 124/66 98 01/19/20 20:09 01/19/20 20:09 01/19/20 20:09 01/19/20 20:09 01/19/20 20:09 Doctor's Discharge - Discharge Referrals: SONU CONTRERAS PA-C [Primary Care Provider] - Follow up as needed
[2020-01-19 22:14] LABS: ABSOLUTE EOSINOPHILS # (AUTO) 0.1 10^3/uL (0.0-0.6); ABSOLUTE LYMPHOCYTES (AUTO) 1.7 10^3/uL (0.5-4.7); ABSOLUTE MONOCYTES (AUTO) 0.6 10^3/uL (0.1-1.4); ABSOLUTE NEUT (AUTO) 6.9 10^3/uL (1.7-8.2); BASOPHILS % (AUTO) 0.2 % (0-2); EOSINOPHILS % (AUTO) 1.1 % (0-6); HEMATOCRIT 38.3 % (36.0-47.0); HEMOGLOBIN 13.3 g/dL (12.0-15.5); LYMPHOCYTES % (AUTO) 18.4 % (13-45); MEAN CORPUSCULAR HEMOGLOBIN 31.2 pg (27.0-33.4); MEAN CORPUSCULAR HGB CONC 34.7 g/dL (32.0-36.0); MEAN CORPUSCULAR VOLUME 90 fl (80-97); MONOCYTES % (AUTO) 6.8 % (3-13); PLATELET COUNT 251 10^3/uL (150-450); RED BLOOD COUNT 4.26 10^6/uL (3.72-5.28); RED CELL DISTRIBUTION WIDTH 13.2 % (11.5-14.0); SEGMENTED NEUTROPHILS % (AUTO) 73.5 % (42-78); TOTAL CELLS COUNTED % (AUTO) 100 %; WHITE BLOOD COUNT 9.4 10^3/uL (4.0-10.5)
[2020-01-19 22:29] LABS: APPEARANCE,URINE CLEAR; BILIRUBIN,URINE NEGATIVE (NEGATIVE); COLOR,URINE YELLOW; GLUCOSE, URINE NEGATIVE (NEGATIVE); KETONES,URINE NEGATIVE (NEGATIVE); LEUKOCYTE ESTERASE,URINE NEGATIVE (NEGATIVE); NITRITE,URINE NEGATIVE (NEGATIVE); PROTEIN,URINE NEGATIVE (NEGATIVE); URINE SPECIFIC GRAVITY 1.009; UROBILINOGEN,URINE NEGATIVE mg/dL (<2.0)
[2020-01-19 22:36] LABS: ALBUMIN 3.6 g/dL (3.5-5.0); ALKALINE PHOSPHATASE 52 U/L (38-126); ANION GAP 9 (5-19); ASPARTATE AMINO TRANSFERASE 19 U/L (14-36); BILIRUBIN,DIRECT 0.2 mg/dL (0.0-0.4); BILIRUBIN,TOTAL 0.2 mg/dL (0.2-1.3); BLOOD UREA NITROGEN 7 mg/dL (7-20); CALCIUM 9.1 mg/dL (8.4-10.2); CARBON DIOXIDE 23 mmol/L (22-30); CHLORIDE 103 mmol/L (98-107); GLUCOSE 84 mg/dL (75-110); POTASSIUM 3.8 mmol/L (3.6-5.0); TOTAL PROTEIN 6.7 g/dL (6.3-8.2)
--- NOTE | 2020-01-19 23:03 | RADIOLOGY REPORT (SQ) ---
EXAM DESCRIPTION: RadLex: US LIMITED CLINICAL HISTORY: 19 years Female; cramping; LMP 09/23/2019. EGA by dates 16 weeks 6 days TECHNIQUE: Transabdominal limited obstetrical ultrasound was performed. COMPARISON: 07/29/2019 FINDINGS: Number of fetuses: Single position: Breech Measurements not obtained HR: 147 BPM Anatomy: Grossly unremarkable on this limited exam Amniotic fluid: LVP 4.8 x 5.1 cm, adequate Cervix: 2.9 cm, closed Placenta: Anterior IMPRESSION: 1. Single viable IUP. No acute findings.
--- NOTE | 2020-01-19 23:20 | ER Document Report ---
ED General - General Chief Complaint: Abdominal Pain Stated Complaint: 17 WKS PREG ABDOMINAL PAIN Time Seen by Provider: 01/19/20 21:39 Primary Care Provider: SONU CONTRERAS PA-C [Primary Care Provider] - Follow up in 3-5 days Mode of Arrival: Ambulatory Notes: 19-year-old G2, P0 approximately 17-week female presents with lower abdominal cramping that is been intermittent for the past 24 hours. Patient denies any fever, abdominal pain, nausea/vomiting, vaginal bleeding/discharge, pelvic pain. Patient states she still feels her baby moving. Patient states that her RELAY TELEGRAPHER is at [facility]. TRAVEL OUTSIDE OF THE [place] IN LAST 30 DAYS: No - Related Data Allergies/Adverse Reactions: amoxicillin Allergy (Verified 01/19/20 21:17) Home Medications: ZOLOFT. PRE- Past Medical History - General Information source: Patient - Social History Smoking Status: Never Smoker Family History: Reviewed & Not Pertinent Patient has suicidal ideation: No Patient has homicidal ideation: No Renal/ Medical History: Reports: Hx Ovarian Cysts. Denies: Hx Peritoneal Dialysis - Immunizations Immunizations up to date: Yes Hx Diphtheria, Pertussis, Tetanus Vaccination: Yes Review of Systems - Review of Systems Notes: Constitutional: Negative for fever. HENT: Negative for sore throat. Eyes: Negative for visual changes. Cardiovascular: Negative for chest pain. Respiratory: Negative for shortness of breath. Gastrointestinal: Positive for abdominal cramping. Negative for abdominal pain, vomiting or diarrhea. Genitourinary: Negative for dysuria. Musculoskeletal: Negative for back pain. Skin: Negative for rash. Neurological: Negative for headaches, weakness or numbness. 10 point ROS negative except as marked above and in HPI. Physical Exam - Vital signs Vitals: Temp Pulse Resp BP Pulse Ox 97.8 F 93 20 124/66 98 01/19/20 20:09 01/19/20 20:09 01/19/20 20:09 01/19/20 20:09 01/19/20 20:09 - Notes Notes: GENERAL: Well-appearing, well-nourished and in no acute distress. HEAD: Atraumatic, normocephalic. EYES: Extraocular movements intact, sclera anicteric, conjunctiva are normal. NECK: Normal range of motion, supple without lymphadenopathy or JVD. No signs of respiratory distress. No tachypnea. Patient is resting comfortably. EXTREMITIES: Normal range of motion, no pitting or edema. No clubbing or cya nosis. NEUROLOGICAL: Cranial nerves II through XII grossly intact. Normal speech, normal gait. PSYCH: Normal mood, normal affect. SKIN: Warm, Dry, normal turgor, no rashes or lesions noted. Course - Re-evaluation Re-evalutation: 01/19/20 nontoxic, well-appearing female presents for lower abdominal cramping. Ultrasound is negative. Lab work is reassuring. UA is negative for blood or urinary tract infection. Discussed all results with patient and patient's partner at bedside. Printed out copy of ultrasound results and gave to patient. Patient given close follow-up with her RELAY TELEGRAPHER. Strict return precautions discussed/given. Patient voices understanding and agrees with plan of care. - Vital Signs Vital signs: Temp Pulse Resp BP Pulse Ox 97.6 F 82 16 111/59 L 98 01/19/20 23:28 01/19/20 23:28 01/19/20 23:28 01/19/20 23:28 01/19/20 23:28 - Laboratory Result Diagrams: 01/19/20 21:55 01/19/20 21:55 Laboratory results interpreted by me: 01/19/20 01/19/20 21:55 21:55 Sodium 134.8 L Creatinine 0.47 L Beta HCG, Quant 60245.00 H Discharge - Discharge Clinical Impression: related bilateral lower abdominal cramping, antepartum, 17 weeks gestation of Condition: Stable Disposition: HOME, SELF-CARE Instructions: Abdominal Pain ([facility]) Additional Instructions: Your ultrasound was normal. The rest of your lab work was reassuring. Please make sure you are drinking plenty of water. Please follow-up with your RELAY TELEGRAPHER at [facility] in 2 to 3 days. Return immediately to ER if you start having any worsening symptoms, including abdominal pain, nausea/vomiting, fever, vaginal b leeding/discharge, pelvic pain, chest pain, shortness of breath, dizziness, or any other symptoms that are concerning to you. Referrals: SONU CONTRERAS PA-C [Primary Care Provider] - Follow up in 3-5 days
[2020-01-19 23:31] VITALS: BP 111/59
== END 2020-01-19 23:38 | disposition home or self-care (01) ==
LOC: ER 20:06
DX: O26.892 Other specified pregnancy related conditions, second trimester (principal); R10.30 Lower abdominal pain, unspecified; Z3A.17 17 weeks gestation of pregnancy; Z79.899 Other long term (current) drug therapy; Z88.0 Allergy status to penicillin
CPT/HCPCS: 36415; 76815; 80053; 81001; 84702; 85025; 99284